=== PATIENT | male | born 1985 | race Caucasian/White ===

== ENCOUNTER 2017-09-27 19:43 | Emergency (ER) | payer OTHER ==
[~2017-09-27] VITALS: Ht 182.9 cm; Wt 74.8 kg
[2017-09-27 19:59] VITALS: BP 133/65
[2017-09-27] MEDS ORDERED: CYCL-331 PO (20:24)
[2017-09-27] MEDS ORDERED: NAPR-683 PO (20:24)
--- NOTE | 2017-09-27 20:24 | PHYS DOC ---
Past History Past Medical History: No Pertinent History Past Surgical History: Tonsillectomy Alcohol Use: None Drug Use: None Adult General Chief Complaint Chief Complaint: LOWER BACK PAIN OR INJURY HPI HPI Patient is a 32 year old male who presents with complaint of low back pain for the past 2 days. Patient states that his symptoms started after he was moving furniture at home in preparation for a graduation alliance party that was held at his home yesterday. The patient states that gradually his symptoms have been getting worse. The patient states that he is having pain and tightness in his low back which radiates towards his left hip. Patient denies any radiation of pain down into the knee or foot. Patient denies any associated loss of bowel or bladder control, saddle anesthesia, or foot drop. Patient states that he has had problems with low back pain in the past but has had no formal evaluation or treatment. Patient has not taken any medications today for his symptoms. The patient rates his pain currently as 9 out of 10 on my evaluation. Patient states he is able to stand and ambulate but he is having significant pain when trying to stand from a seated position. Review of Systems Review of Systems Constitutional: Denies fever or chills [] Eyes: Denies change in visual acuity, redness, or eye pain [] HENT: Denies nasal congestion or sore throat [] Respiratory: Denies cough or shortness of breath [] Cardiovascular: Denies chest pain or edema[] GI: Denies abdominal pain, nausea, vomiting, bloody stools or diarrhea [] : Denies dysuria or hematuria [] Musculoskeletal: Low back pain[] Integument: Denies rash or skin lesions [] Neurologic: Denies headache, focal weakness or sensory changes [] All other systems were reviewed and found to be within normal limits, except as documented in this note. Allergies Allergies Allergies Coded Allergies Type Severity Reaction Last Updated Verified No Known Drug Allergies 09/27/17 No Physical Exam Physical Exam Constitutional: Well developed, well nourished, afebrile, appears in mild to moderate discomfort. [] HENT: Normocephalic, atraumatic, bilateral external ears normal, oropharynx moist, no oral exudates, nose normal. [] Eyes: PERRLA, EOMI, conjunctiva normal, no discharge. [] Neck: Normal range of motion, no tenderness, supple, no stridor. [] Cardiovascular:Heart rate regular rhythm, no murmur [] Lungs & Thorax: Bilateral breath sounds clear to auscultation [] Abdomen: Bowel sounds normal, soft, no tenderness, no masses, no pulsatile masses. [] Skin: Warm, dry, no erythema, no rash. [] Back: No midline tenderness, left paraspinous muscle tenderness to palpation along lower lumbar spine and tenderness near sciatic nerve distribution, negative straight leg test. [] Extremities: No tenderness, no cyanosis, no clubbing, ROM intact, no edema. [] Neurologic: Alert and oriented X 3, normal motor function, normal sensory function, no focal deficits noted. [] Current Patient Data Vital Signs Vital Signs Date Time Temp Pulse Resp B/P (MAP) Pulse Ox O2 Delivery O2 Flow Rate FiO2 09/27/17 19:59 98.1 86 20 96 Room Air Lab Results Not performed EKG EKG Not performed[] Radiology/Procedures Radiology/Procedures Not performed[] Course & Med Decision Making Course & Med Decision Making Pertinent Labs and Imaging studies reviewed. (See chart for details) Patient's symptoms appear consistent with acute lower lumbar strain. Patient treated with Flexeril and Naprosyn. Patient does not display any findings warranting emergent imaging at this time. Advise follow-up in 5-7 days a primary doctor for reevaluation and return to the emergency department for any worsening symptoms. Patient voiced understanding and in agreement with treatment plan. Dragon Disclaimer Dragon Disclaimer This electronic medical record was generated, in whole or in part, using a voice recognition dictation system. Departure Departure: Impression: Primary Impression: Acute low back pain Disposition: 01 HOME, SELF-CARE Condition: STABLE Referrals: PCP,NO (PCP) Patient Instructions: Back Pain, Adult Additional Instructions: Follow-up with your primary doctor in 5-7 days for reevaluation. Return to the emergency department for any worsening symptoms. Scripts Naproxen (NAPROSYN) 500 Mg Tablet 1 TAB PO BID PRN for PAIN, #20 TAB 0 Refills Prov: GLEN WATERS MD 09/27/17 Cyclobenzaprine Hcl (CYCLOBENZAPRINE HCL) 10 Mg Tablet 1 TAB PO TID PRN for MUSCLE SPASMS, #30 TAB Prov: GLEN WATERS MD 09/27/17 Problem Qualifiers Primary Impression: Acute low back pain Back pain laterality: left Sciatica presence: without sciatica Qualified Codes: M54.5 - Low back pain GLEN WATERS MD September 27, 2017 20:24
[2017-09-27] MEDS ORDERED: NAPROXEN 500 MG TABLET PO ONE (20:30)
[2017-09-27] MEDS ORDERED: CYCLOBENZAPRINE 10 MG TABLET. PO ONE (20:30)
== END 2017-09-27 21:08 | disposition home or self-care (01) ==
LOC: ER 19:43
DX: M54.5 Low back pain (principal)
CPT/HCPCS: 99283

== ENCOUNTER 2017-10-26 16:44 | Emergency (ER) | payer OTHER ==
[~2017-10-26] VITALS: Ht 182.9 cm; Wt 79.4 kg
[~2017-10-26 16:44] MED LIST: CYCL-331 PO; NAPR-683 PO
[2017-10-26] MEDS ORDERED: TRAM-48 PO (16:58)
[2017-10-26] MEDS ORDERED: PENI500T PO (16:58)
--- NOTE | 2017-10-26 16:58 | PHYS DOC ---
Past History Past Medical History: No Pertinent History Past Surgical History: Tonsillectomy Alcohol Use: None Drug Use: None Adult General Chief Complaint Chief Complaint: DENTAL PROBLEM HPI HPI Patient is a 32-year-old male presents for evaluation of dental pain. He states his appointment with his dentist, Dr. Wu, on this Wednesday for a dental extraction. His pain is in the back upper left. He states that his dentist wanted him to come to the emergency department to get antibiotics. He has no other complaints. He has no difficulty opening or closing his mouth. He has not had any facial swelling, fevers, or chills. He has had a dental problem in this area for months. Review of Systems Review of Systems Constitutional: Denies fever or chills [] Eyes: Denies change in visual acuity, redness, or eye pain [] HENT: Denies nasal congestion or sore throat [] +dental pain Respiratory: Denies cough or shortness of breath [] Cardiovascular: No additional information not addressed in HPI [] GI: Denies abdominal pain, nausea, vomiting, bloody stools or diarrhea [] : Denies dysuria or hematuria [] Musculoskeletal: Denies back pain or joint pain [] Integument: Denies rash or skin lesions [] Neurologic: Denies headache, focal weakness or sensory changes [] Endocrine: Denies polyuria or polydipsia [] All other systems were reviewed and found to be within normal limits, except as documented in this note. Allergies Allergies Allergies Coded Allergies Type Severity Reaction Last Updated Verified No Known Drug Allergies 09/27/17 No Physical Exam Physical Exam Constitutional: Well developed, well nourished, no acute distress, non-toxic appearance. [] HENT: Normocephalic, atraumatic, bilateral external ears normal, oropharynx moist, no oral exudates, nose normal. [] tooth #16 is partially fractured/eroded , no gingival swelling or abscess, no bleeding or drainage, no facial swelling Eyes: PERRLA, EOMI, conjunctiva normal, no discharge. [] Neck: Normal range of motion, no tenderness, supple, no stridor. [] Cardiovascular:Heart rate regular rhythm, no murmur [] Lungs & Thorax: Bilateral breath sounds clear to auscultation [] Abdomen: Bowel sounds normal, soft, no tenderness, no masses, no pulsatile masses. [] Skin: Warm, dry, no erythema, no rash. [] Back: No tenderness, no CVA tenderness. [] Extremities: No tenderness, no cyanosis, no clubbing, ROM intact, no edema. [] Neurologic: Alert and oriented X 3, normal motor function, normal sensory function, no focal deficits noted. [] Psychologic: Affect normal, judgement normal, mood normal. [] EKG EKG [] Radiology/Procedures Radiology/Procedures [] Course & Med Decision Making Course & Med Decision Making Pertinent Labs and Imaging studies reviewed. (See chart for details) [] Dragon Disclaimer Dragon Disclaimer This electronic medical record was generated, in whole or in part, using a voice recognition dictation system. Departure Departure: Impression: Primary Impression: Tooth pain Disposition: HOME, SELF-CARE Condition: STABLE Referrals: PCPCHRISS (PCP) Patient Instructions: Dental Caries, Dental Pain Additional Instructions: Department with your dentist on Wednesday. Take the prescribed antibiotics as prescribed and pain medicine as needed. Return to the ER for new or worsening symptoms. Scripts Tramadol Hcl (ULTRAM) 50 Mg Tablet 50 MG PO PRN Q6HRS PRN for PAIN, #15 TAB Prov: TAMMI VÁZQUEZ DO 10/26/17 Penicillin V Potassium (PENICILLIN V POTASSIUM) 500 Mg Tablet 1 TAB PO QID, #40 TAB Prov: TAMMI VÁZQUEZ DO 10/26/17 TAMMI VÁZQUEZ DO Oct 26, 2017 16:58
[2017-10-26 16:59] VITALS: BP 109/72
== END 2017-10-26 17:21 | disposition home or self-care (01) ==
LOC: ER 16:44
DX: K08.89 Other specified disorders of teeth and supporting structures (principal)
CPT/HCPCS: 99283